=== PATIENT | female | born 1965 | race Caucasian/White ===

== ENCOUNTER 2017-08-18 09:06 | Day surgery (SDC) | payer BC ==
[2017-08-18] VITALS (16 sets, daily range): BP systolic 117–147; BP diastolic 60–85; PULSE 83–122; RESP 13–26; Ht 162.6 cm; Wt 105.1 kg
[~2017-08-18] VITALS: Ht 162.6 cm; Wt 105.1 kg
[~2017-08-18 09:06] MED LIST: BUPIVACAINE 0.5% (SDV) 30 ML, EPINEPHrine 0.3 MG, KETOROLAC 30 MG, CLONIDINE 100 MCG, S... IRR SCH; DIPHENHYDRAMINE 50 MG INJ IV PRN; FENTAnyl 50 MCG/ML VIAL IV PRN; GABAPENTIN 300 MG CAP PO SCH; HYDROmorphONE (0.2 MG/ML) 10ML SYG IV PRN; IBUP-725 PO; KETOROLAC 30 MG INJ IV PRN; MEPERIDINE 25 MG INJ IV PRN; ONDANSETRON 4 MG INJ IV PRN; PROCHLORPERAZINE 10 MG INJ IV PRN; traMADol 50 MG TAB PO SCH
--- NOTE | 2017-08-18 09:23 | HPN ---
Date/Time of Note Date/Time of Note DATE: 08/18/17 TIME: 09:23 Interval H&P Admission Note Pt. seen H&P reviewed: No system changes SHABBIR ROTHMAN MD Aug 18, 2017 09:23
[2017-08-18] MEDS: VANCOMYCIN 1 GM (PMX) 250 ML IVPB SCH ×2 (10:59→13:36)
[2017-08-18] MEDS ORDERED: LIDOCAINE 2% (SDV) 5 ML INJ ONE (13:59)
[2017-08-18] MEDS ORDERED: FENTAnyl 50 MCG/ML VIAL ONE (13:59)
[2017-08-18] MEDS ORDERED: MIDAZOLAM 1 MG/ML 2 ML INJ ONE (13:59)
[2017-08-18] MEDS ORDERED: PROPOFOL 20 ML ONE (13:59)
[2017-08-18] MEDS ORDERED: BUPIVACAINE 0.5%/EPI (SDV) 30 ML INJ ONE (14:35)
[2017-08-18] MEDS ORDERED: EPINEPHrine 1 MG/ML 30 ML INJ ONE (14:58)
[2017-08-18] MEDS ORDERED: PHENYLephrine (100 MCG/ML) 5ML SYG ONE (15:10)
[2017-08-18] MEDS ORDERED: ONDANSETRON 4 MG INJ ONE (15:11)
[2017-08-18] MEDS ORDERED: METOCLOPRAMIDE 10 MG INJ ONE (15:11)
[2017-08-18] MEDS ORDERED: FAMOTIDINE 20 MG INJ ONE (15:11)
[2017-08-18] MEDS ORDERED: DEXAMETHASONE 4 MG/ML 1 ML INJ ONE (15:11)
[2017-08-18] MEDS ORDERED: KETAMINE 500 MG INJ ONE (15:26)
[2017-08-18] MEDS ORDERED: SCOPOLAMINE 1.5 MG PATCH ONE (15:33)
[2017-08-18] MEDS ORDERED: SUGAMMADEX SODIUM 200 MG/2 ML VIAL IV ONE (15:36)
[2017-08-18] MEDS ORDERED: KETOROLAC 30 MG INJ ONE (15:41)
--- NOTE | 2017-08-18 15:49 | PDOCDIS ---
Discharge Instructions DIAGNOSIS Discharge Diagnosis Right hip primary arthritis CONDITION Patient Condition: Good HOME CARE INSTRUCTIONS: Diet Instructions: Regular ACTIVITY: Activity Restrictions: Slowly Increase Activity Keep Limb Elevated FOLLOW UP/APPOINTMENTS Follow-up Plan 2 weeks in the office SCHOOL/WORK RELEASE May return to School/Work with: With Restrictions School/Work Release Comment: Crutches as necessary for the next 2 weeks SHABBIR ROTHMAN MD Aug 18, 2017 15:49
--- NOTE | 2017-08-18 15:53 | OPR ---
Date/Time of Note Date/Time of Note DATE: 08/18/17 TIME: 15:50 Operative Report Procedure Date: Aug 18, 2017 Preoperative Diagnosis Right hip labral tear Postoperative Diagnosis 1. Right hip primary arthritis Operation/Procedure Performed Right hip arthroscopy with debridement and chondroplasty Surgeon see signature line Tax Processor Abe Marinelli MD Anesthesia Type: general Estimated Blood Loss: minimal Transfusion none Specimen None Grafts/Implants none Tubes/Drains None Complications none Pt Condition Post Procedure: stable Disposition: PACU Procedure Description INDICATIONS FOR PROCEDURE AND SUMMARY: This patient has the clinical problem of femoroacetabular impingement. Essentially, there is an overgrowth of the femoral head and neck junction that is leading to the clinical problem of a torn labrum with its mechanical symptomatology and pain. The surgical procedure involves first a diagnostic arthroscopy and debridement or repair of the labral tear, followed by a separate entrance into the area of the impingement lesion. The hip is divided into two separate compartments termed the central and peripheral compartments. Traditionally, the procedures performed in the central compartment include labral debridement, synovectomy, and chondroplasty. The procedure described as a femoral neck resection includes treatment of the central compartment problems as well as re-positioning the extremity, starting new portals in the peripheral compartment (using fluoroscopic guidance once again), completing a diagnostic arthroscopy of this compartment and then finally resection of the femoral neck impingement lesion that is present. The concept of the procedure is somewhat like the evaluation of the shoulder where the glenohumeral compartment is evaluated, followed by the subacromial compartment. BROADCASTER SURGEON: Abe Marinelli MD was asked to be present at my request as a result of the significant surgical complexity associated with this procedure. Specifically, the arthroscopic resection of the femoral neck requires expert assistance with respect to the positioning of the arthroscope, which is a 70- degree arthroscope, while the surgeon exchanges instruments to perform the resection and labral repair. In my opinion, the assistance offered by a surgical asst is not sufficient as a result of their lack of training with these instruments. Dr. Marinelli should therefore be compensated for their time. PROCEDURE: Following the administration of general anesthesia supplemented with local anesthetic, the patient was placed in the supine position on the [employer] hip traction device. All prominences were properly padded, including the perineum and the ipsilateral arm. Examination of the right hip revealed a range of motion of 10 of internal rotation with 90 of flexion. The right hip was prepped and draped in the usual sterile fashion. The leg was then placed in traction. Under fluoroscopic guidance, anterior and anterolateral portals were then established in the central compartment. CENTRAL COMPARTMENT DIAGNOSTIC: Examination revealed extensive chondral delamination of the femoral head. There were multiple loose bodies within the central compartment. 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 The acetabulum also had diffuse grade III chondromalacia. The ligamentum teres was hypertrophic and there was significant osteophytic processes within the edge of the ligamentum notch. CENTRAL COMPARTMENT PROCEDURE: The shaver and the ablator were then inserted. A limited capsulotomy was then performed and an extensive debridement of the joint was then undertaken. Multiple chondral flaps were removed and several small loose bodies were also aspirated. The arthroscopic equipment was then removed. The leg was taken out of traction and repositioned to 45 of flexion with neutral rotation. The anterior portal was then used for entry into the peripheral compartment while using fluoroscopic localization for the appropriate portal position along the femoral neck. PERIPHERAL COMPARTMENT DIAGNOSTIC: Endoscopic examination revealed a good labral seal. Further evaluation revealed the peripheral femoral cartilage also Also has significant grade IV chondromalacia in a diffuse fashion. There was no cam lesion. The arthroscopic equipment was then removed, following thorough irrigation of the joint to assure that all bony debris was cleared. The wounds were closed using #4-0 Monocryl sutures, followed by a sterile dressing. The patient was then extubated and transported to the recovery room in stable condition, having tolerated the procedure well. SHABBIR ROTHMAN MD Aug 18, 2017 15:53
[2017-08-18] MEDS ORDERED: MEPERIDINE 25 MG INJ ONE (16:32)
[2017-08-18] MEDS ORDERED: DIPHENHYDRAMINE 50 MG INJ IV PRN (17:00)
[2017-08-18] MEDS ORDERED: PROCHLORPERAZINE 10 MG INJ IV PRN (17:00)
[2017-08-18] MEDS ORDERED: MEPERIDINE 25 MG INJ IV PRN (17:00)
[2017-08-18] MEDS ORDERED: hydrALAzine 20 MG INJ IV PRN (17:00)
[2017-08-18] MEDS ORDERED: LORAZEPAM 2 MG INJ IV PRN (17:00)
[2017-08-18] MEDS ORDERED: LABETALOL HCL 20MG INJ IV PRN (17:00)
[2017-08-18] MEDS ORDERED: FENTAnyl 50 MCG/ML VIAL IV PRN (17:00)
[2017-08-18] MEDS ORDERED: ONDANSETRON 4 MG INJ IV PRN (17:00)
--- NOTE | 2017-08-18 18:00 | RADRPT ---
PROCEDURE: Intraoperative imaging of the right hip with fluoroscopy. CLINICAL INDICATION: Right hip pain. Intraoperative. TECHNIQUE: Four images of the right hip were obtained in the operating room with an image intensif ier. No radiologist was in attendance. 20 seconds of fluoroscopy time was used. COMPARISON: No prior study is available for comparison. FINDINGS: Images demonstrate surgical instruments overlying the right hip joint. IMPRESSION: 1. Satisfactory intraoperative imaging of the right hip. RPTAT: QQ .Dimitri Hanks MD, MD Date Time Electronically viewed and signed by .Dimitri Hanks MD, MD on 08/18/2017 18:00 .R/
== END 2017-08-18 18:40 | disposition home or self-care (01) ==
LOC: SDS 09:06 → EDSTATUS 11:00 → SDS 18:40
PROVIDERS: ATTEND Orthopaedic Surgery
DX: M13.851 Other specified arthritis, right hip (principal); M54.5 Low back pain; M54.2 Cervicalgia; K21.9 Gastro-esophageal reflux disease without esophagitis; E66.01 Morbid (severe) obesity due to excess calories
CPT/HCPCS: 29862; 73530; 86999; J0171; J0780; J1100; J1885; J2175; J2250; J2370; J2405; J2765; J3010; J3370